=== PATIENT | male | born 1970 | race African-American/Black ===

== ENCOUNTER 2018-05-03 13:03 | Emergency (ER) | payer OTHER ==
[2018-05-03 15:28] LABS: ADD MAN DIFF? NO
[2018-05-03] MEDS: LIDOCAINE/MYLANTA 40 ML BTL PO (15:34)
[2018-05-03] MEDS: FAMOTIDINE 20 MG TAB PO (15:34)
[2018-05-03] MEDS: BELLADONNA/PHENOBARBITAL TAB PO (15:34)
[2018-05-03 15:41] LABS: WHITE BLOOD COUNT 7.3 10^3/ul (4.8-10.8)
[2018-05-03 15:41] LABS: BASOPHILS % 0.3 % (0.0-2.0); EOSINOPHILS % 0.4 % (0.0-7.0); HEMOGLOBIN 13.1 g/dl (14.0-18.0); LYMPHOCYTES # 1.8 10^3/ul (0.8-2.9); MEAN CORPUSCULAR HEMOGLOBIN 24.9 pg (29.0-33.0); MEAN CORPUSCULAR VOLUME 77.8 fl (82.0-101.0); MEAN PLATELET VOLUME 9.1 fl (7.4-10.4); MONOCYTE # 0.6 10^3/ul (0.3-0.9); MONOCYTES % 8.1 % (0.0-11.0); NEUTROPHIL # 4.8 10^3/ul (1.6-7.5); NEUTROPHILS % 65.9 % (39.0-77.0); PLATELET COUNT 265 10^3/UL (140-415); RED BLOOD COUNT 5.27 10^6/ul (4.70-6.10); RED CELL DISTRIBUTION WIDTH 15.7 % (11.5-14.5)
[2018-05-03 15:50] LABS: ALANINE AMINOTRANSFERASE 114 IU/L (13-69); ALBUMIN 4.6 g/dl (3.3-4.9); ALBUMIN/GLOBULIN RATIO 1.12; ALKALINE PHOSPHATASE 77 IU/L (42-121); ANION GAP 11 (5-13); ASPARTATE AMINO TRANSFERASE 199 IU/L (15-46); BILIRUBIN,INDIRECT 0.8 mg/dl (0-1.1); BILIRUBIN,TOTAL 0.8 mg/dl (0.2-1.3); BLOOD UREA NITROGEN 26 mg/dl (7-20); CALCIUM 9.8 mg/dl (8.4-10.2); CARBON DIOXIDE 27 mmol/L (21-31); CHLORIDE 101 mmol/L (97-110); CREATININE 1.19 mg/dl (0.61-1.24); Estimated GFR > 60 mL/min (>60); GLUCOSE 94 mg/dl (70-220); LIPASE 70 U/L (23-300); POTASSIUM 3.6 mmol/L (3.5-5.1); SODIUM 139 mmol/L (135-144); TOTAL PROTEIN 8.7 g/dl (6.1-8.1)
== END 2018-05-03 16:42 | disposition home or self-care (01) ==
LOC: E/R 13:03
DX: R10.13 Epigastric pain (principal); Z87.891 Personal history of nicotine dependence
CPT/HCPCS: 80053; 83690; 85025; 99283

== ENCOUNTER 2018-08-24 07:47 | Emergency (ER) | payer OTHER, MEDICAID ==
[2018-08-24] MEDS: LIDOCAINE/MYLANTA 40 ML BTL PO (09:49)
[2018-08-24] MEDS: BELLADONNA/PHENOBARBITAL TAB PO (09:49)
[2018-08-24] MEDS: KETOROLAC 60 MG INJ IM (09:59)
== END 2018-08-24 10:38 | disposition home or self-care (01) ==
LOC: E/R 07:47
DX: K21.9 Gastro-esophageal reflux disease without esophagitis (principal)
CPT/HCPCS: 96372; 99284-25